=== PATIENT | female | born 1995 | race Caucasian/White ===

== ENCOUNTER 2017-10-13 16:02 | Emergency (ER) | payer MEDICAID, OTHER ==
--- NOTE | 2017-10-13 18:44 | ED Physician Chart ---
ED Chief Complaint/HPI - Patient Information Date Seen:: 10/13/17 Time Seen:: 16:00 Chief Complaint:: Headaches History of Present Illness:: onset x one month of intermittent, dull, diffuse Headaches and MS type Low Back Pain; pt denies trauma, LOC, ALOC, AMS, N/V, decreased activity, visual or gait changes, weakness, dizziness, paresthesias, vertigo, cough, C/P, SOB, Abd. Pain , A/N/V/D/C, fever, chills, or urinary s/s Allergies:: Allergies Allergy/AdvReac Type Severity Reaction Status Date / Time No Known Allergies Allergy Verified 10/13/17 16:19 Vitals:: Vital Signs - 8 hr 10/13/17 10/13/17 16:02 16:48 Temp 97.4 F 97.4 F HR 90 90 RR 16 16 BP 141/87 141/87 O2 Sat % 97 97 Historian:: Patient Review:: Nurse's Note Reviewed ED Review of Systems - Review of Systems General/Constitutional: No fever, No chills, No weight loss, No weakness, No diaphoresis, No edema, No loss of appetite Skin: No skin lesions, No rash, No bruising Head: No headache, No light-headedness Eyes: No loss of vision, No pain, No diplopia ENT: No earache, No nasal drainage, No sore throat, No tinnitus Neck: No neck pain, No swelling, No thyromegaly, No stiffness, No mass noted Cardio Vascular: No chest pain, No palpitations, No PND, No orthopnea, No edema Pulmonary: No SOB, No cough, No sputum, No wheezing GI: No nausea, No vomiting, No diarrhea, No pain, No melena, No hematochezia, No constipation, No hematemesis G/U: No dysuria, No frequency, No hematuria, No nacturia 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, No abnormal vaginal bleed, No contraction Musculoskeletal: No bone or joint pain, Back pain, No muscle pain Endocrine: No polyuria, No polydipsia Psychiatric: No prior psych history, No depression, No anxiety, No suicidal ideation, No homicidal ideation, No auditory hallucination, No visual hallucination Hematopoietic: No bruising, No lymphadenopathy Allergic/Immuno: No urticaria, No angioedema Neurological: No syncope, No focal symptoms, No weakness, No paresthesia, Headache, No seizure, No dizziness, No confusion, No vertigo ED Past Medical History - Past Medical History Obtainable: Yes Past Medical History: No significant medical hx Family History: None Social History: Non Smoker, No Alcohol, No Drug Use, Single Surgical History: None Psychiatricy History: None Medication: Reviewed Family Medical History - Family Member Mother Ethnicity: Living Status: Still Living Hx Family Hypertension: Yes Father History Unknown: Yes Ethnicity: Non- Living Status: Still Living Hx Family Coronary Artery Disease: Yes Hx Family Hypertension: Yes ED Physical Exam - Physical Examination General/Constitutional: Awake, Well-developed, well-nourished, Alert, No distress, GCS 15, Non-toxic appearing, Ambulatory Head: Atraumatic Eyes: Lids, conjuctiva normal, PERRL, EOMI Skin: Nl inspection, No rash, No skin lesions, No ecchymosis, Well hydrated, No lymphadenopathy ENMT: External ears, nose nl, TM canals nl, Nasal exam nl, Lips, teeth, gums nl , Oropharynx nl, Tonsils nl Neck: Nontender, Full ROM w/o pain, No JVD, No nuchal rigidity, No bruit, No mass, No stridor Other Neck comments:: supple; no meningeal signs; no cervical tenderness Respiratory: Nl effort/Exclusion, Clear to Auscultation, No Wheeze/Rhonchi/Rales Cardio Vascular: RRR, No murmur, gallop, rubs, NL S1 S2, Carotid/Femoral/Distal pulses equal bilaterally GI: No tenderness/rebounding/guarding, No organomegaly, No hernia, Normal BS's, Nondistended, No mass/bruits, No McBurney tenderness Other GI comments:: no pulsatile masses : No CVA tenderness Extremities: No tenderness or effusion, Full ROM, normal strength in all extremities, No edema, Normal digits & nails Neuro/Psych: Alert/oriented, DTR's symmetric, Normal sensory exam, Normal motor strength, Judgement/insight normal, Mood normal, Normal gait, No focal deficits Misc: Normal back, No paraspinal tenderness ED Labs/Radiology/EKG Results - Lab Results Results: Laboratory Tests 10/13/17 17:32 Urine Test NEGATIVE ED Septic Shock - . Is Septic Shock (SBP<90, OR Lactate>4 mmol\L) present?: No - <6hrs of presentation: Vital Signs: Vital Signs - 8 hr 10/13/17 10/13/17 16:02 16:48 Temp 97.4 F 97.4 F HR 90 90 RR 16 16 BP 141/87 141/87 O2 Sat % 97 97
--- NOTE | 2017-10-14 00:24 | Transfer Summary ---
DATE OF TRANSFER: 10/13/2017 The nurse in charge of taking care of this patient is Fatimah. The doctor who saw the patient before I came on the scene at 7:[address] Leonard Holcomb. He ordered a CT scan of the cervical spine and lumbar spine and all the things has been ordered and we just got the results. Actually, it was sent at 7:59 and we were given at 9:15, almost 1 hour and [address] of the brain was found to be negative. CT spine was negative. CT of the lumbar spine was negative. CT of the chest x-ray shows right lower lobe pneumonia/effusion and the patient was examined. No other abnormalities detected. Weight is 160 pounds. Because of the questionable pneumonia the patient has been sent home on Levaquin 500 mg once a day, probiotic 2 tablets 3 times a day, Tylenol for pain and she is to lose some weight, eat less, work a little more and exercise and a low fat, low cholesterol diet. FINAL DIAGNOSES: Back pain and possible right lower lobe pneumonia/effusion. This report was given as a copy to the patient herself. The patient was advised to see her own primary care physician. Report to the Emergency Room for any emergency need but nothing acutely seen at the present moment. The patient can go home. No other lab workup needs to be done. Dr. Holcomb has not ordered any lab workup. So, it is already 9:20 and patient does not have any fever, chills or rigors or any other medical complaints. She has generalized back pain all over the back. Urine test was found to be negative. JOB# [id number]
--- NOTE | 2017-10-14 09:55 | Diagnostic Imaging Report ---
Exam: CT examination lumbar sacral spine. HISTORY: Pain Total DLP equals 1315 CTDI equals 44.2 Findings: Multiple contiguous thin section of the lumbar sacral spine were obtained without administration contrast material. Sagittal and coronal reconstruction technique was utilized. Findings: The study demonstrates the vertebral bodies of normal height with preserved intervertebral disc spaces. There is no evidence of fracture dislocation. The pedicles are intact. No prevertebral soft tissue swelling is noted. There is no evidence of spondylolysis or spondylolisthesis. IMPRESSION: Normal examination lumbar sacral spine
--- NOTE | 2017-10-14 09:56 | Diagnostic Imaging Report ---
CT scan cervical spine History: Neck pain Total DLP equals 625 CTDI equals 31.9 Axial sections were obtained through the cervical spine region. Additional sagittal and coronal reformatted images are provided. No focal bony lesions are seen. Specifically, no fractures are identified. There is limited visualization of the margins of the cervical spinal cord. No obvious extradural soft tissue abnormalities are seen. The prevertebral soft tissues appear normal. Impression: No acute abnormalities
--- NOTE | 2017-10-14 09:57 | Diagnostic Imaging Report ---
CT scan of the brain without contrast History: Headache Total DLP equals 708 CTDI equals 40.5 Axial sections were obtained from the base of the skull to the vertex. There is a normal ventricular system size. No focal parenchymal lesions are seen. No evidence of any mass effect or shift of midline structures. No extra-axial masses or abnormal fluid collections. Impression: Negative examination
== END 2017-10-13 22:05 | disposition home or self-care (01) ==
LOC: ER 16:02
DX: R51 Headache (principal); M54.5 Low back pain
CPT/HCPCS: 70450-TC; 72125-TC; 72131-TC; 81025-TC

== ENCOUNTER 2017-10-21 14:51 | Emergency (ER) | payer SELFPAY ==
--- NOTE | 2017-10-27 13:26 | ER Physician Documentation ---
DATE OF SERVICE: 10/21/2017 EMERGENCY ROOM EVALUATION AND TREATMENT This is a 22-year-old female patient whose date of was 1995. She came here ____ 8 days ago, at which time Dr. Holcomb saw her. The patient had some cough and some headache and backache and pain all over the body in the upper part of the body and at that time, the CT scan was negative, but showed questionable pneumonia on the right side, but to me, the patient was clinically negative, but the patient was given antibiotics. The patient came back because she had no money to buy the antibiotic and the patient does not take antibiotic and now she says she is feeling worse. I examined her, I did not find anything wrong with her and told her that she can take the same medication that I prescribed her. She says she will be getting the money and she would be getting in 7-8 days antibiotics, but to me honestly speaking, I do not find anything wrong with her. The patient was discharged for home. The final diagnosis by patient is, the patient is having some cough and clinically I do not find anything wrong with her. The patient was discharged for home. JOB# [id number]
== END 2017-10-21 16:09 | disposition home or self-care (01) ==
LOC: ER 14:51
DX: R05 Cough (principal); R51 Headache; M54.9 Dorsalgia, unspecified
CPT/HCPCS: Z7502